=== PATIENT | female | born 1970 ===

== ENCOUNTER 2025-05-29 23:43 | Day surgery (SDC) | payer BC, SELFPAY ==
[2025-05-29 17:45] VITALS: BP 138/81
[2025-05-29 18:10] LABS: Hematocrit 41.9 % (37.0-47.0); Hemoglobin 13.4 g/dL (12.0-16.0); Mean Corp Hgb Conc. 32.0 g/dL (33.0-37.0); Mean Corpuscular Volume 89.7 fL (81.0-99.0); Nucleated Red Blood Cells % 0 %; Platelet Count 246 10^3/uL (130-400); Red Cell Dist. Width 12.9 % (11.5-14.5)
[2025-05-29 18:18] LABS: Urine Character Clear (Clear)
[2025-05-29 18:31] LABS: ALT (SGPT) 36 U/L (0-35); AST (SGOT) 23 U/L (14-36); Albumin 4.6 g/dl (3.5-5.0); Alkaline Phosphatase 56 U/L (38-126); Blood Urea Nitrogen 17 mg/dl (7-17); Calcium 10.0 mg/dl (8.4-10.2); Carbon Dioxide 28 mmol/L (22-30); Chloride 106 mmol/L (98-107); Glucose 108 mg/dl (70-99); Lipase 170 U/L (23-300); Potassium 4.0 mmol/L (3.5-5.1); Sodium 141 mmol/L (135-145); Total Protein 7.9 g/dl (6.3-8.2); eGFR > 60.00
[2025-05-29 19:20] LABS: Urine Urothelial Cell 0-2 /LPF (FEW)
[2025-05-29 22:24] VITALS: BMI 29.7
--- NOTE | 2025-05-29 22:37 | ED.GENMED ---
History of Present Illness
General
Chief Complaint: Abdominal Pain
Time Seen by Provider: 05/29/25 20:29
History of Present Illness
History of Present Illness:
55-year-old female presents emergency department for evaluation of right lower quadrant pain for the past 2 days associated with poor appetite. Pain worsens when she walks and when she has bumps in the car. No fevers or chills. Prior abdominal
surgery includes
Review of Systems
Review of Systems
Allergies reviewed?: Yes
All Other Systems: ROS reviewed and negative except as documented in HPI and ROS
Phy Exam
Physical Exam
Physical Exam:
GEN: Well appearing, NAD, WDWN
HEENT: Oral mucosa moist, no scleral icterus
Cardiac: Regular rate
Lung: No respiratory distress, no tachypnea
Abdomen: Soft, focal right lower quadrant tenderness, no rigidity or peritoneal signs
MSK: No gross deformity or injuries
Skin: Good color, no pallor or jaundice, no rashes
Neuro: AO x3, moves all extremities freely
Psych: Calm, cooperative
Course
Orders/Labs/Results
Orders:
Orders
05/29/25 17:53
Complete Blood Count/With Diff Urgent
Comprehensive Metabolic Panel Urgent
Lipase Urgent
Urinalysis Reflex To Culture Urgent
Date Specimen was Collected: 05/29/25
Time Specimen was Collected: 17:47
Urine Microscopic Reflex Cult Urgent
Urine Culture Urgent
STEFFANIE Source: U
Specimen Description:
Date Specimen was Collected: 05/29/25
Time Specimen was Collected: 17:47
05/29/25 20:49
CT Abd/pelvis Wo Iv Cont Urgent
Comment: iv infiltrated, Yves made aware stated does not need iv
Reason For Exam: RLQ pain
05/29/25 22:36
Lactated Ringers [Lr] 1,000 ml IV 150 mls/hr
Piperacillin/Tazo 3.375 Gram [Zosyn] 3.375 gram in 50 ml IV NOW
Abnormal Lab Results
05/29/25
17:53
MCHC 32.0 L g/dL
(33.0-37.0)
MPV 11.8 H fL
(7.4-10.4)
Glucose 108 H mg/dl
(70-99)
ALT 36 H U/L
(0-35)
Ur Occult Blood Reflex 3+ A
(Negative)
Urine RBC 7-10 A /HPF
(0-2)
Urine Bacteria (Reflex) Moderate A
(Negative)
05/29/25 17:53
05/29/25 17:53
Vital Signs
Initial and Last Documented VS:
Initial Vital Signs
Temp Pulse Resp BP Pulse Ox
98.1 F 71 16 138/81 98
05/29/25 17:45 05/29/25 17:45 05/29/25 17:45 05/29/25 17:45 05/29/25 17:45
Last Documented Vital Signs
Temp Pulse Resp BP Pulse Ox
98.1 F 71 16 138/81 98
05/29/25 17:45 05/29/25 17:45 05/29/25 17:45 05/29/25 17:45 05/29/25 22:39
MDM/Problems Addressed
MDM/Problems Addressed:
Imaging and exam consistent with acute appendicitis. The patient did experience an IV contrast infiltration during scan however despite IV contrast not being adequately present on scan appendix was still clearly visualized. She was given ice pack
and elevation of the left arm. Will be admitted to the surgical service for operative intervention
*Pulse Oximetry
SaO2: 98
Oxygen Mode of Delivery: Room air
Patient hypoxic: no
*Critical Care Note
Total Time (30-74mins, 75-104mins- exclusive of procedures): Not Applicable
ED Attending Note
-
Portions of this chart may have been created with voice recognition software.� Occasional wrong word or��sound alike� substitutions may have occurred due to the inherent limitations of voice recognition software.
Discharge Plan
Departure
Patient Disposition: Admit
Date of Disposition: 05/29/25
Time of Disposition: 22:38
Admit to: Med/Surg
Presentation/result/management discussed w/ accepting MD/DO: Hospitalist
Discharge Problem:
Acute appendicitis
Referrals:
Simone Stewart MD [Family Provider, Internal Medicine]
Interventions
Interventions:
*Risk Screen - Suicide Last Done: 05/29/25 21:07
*General Assessment Last Done: 05/29/25 21:07
*Neglect/Abuse Screening Last Done: 05/29/25 21:07
*ED- Fall Risk Assessment Last Done: 05/29/25 21:07
*ED COVID-19 Vaccine History Last Done: 05/29/25 21:07
HF-Usrchf-Ynrwaszpli Assessment Last Done: 05/29/25 21:06
Discharge Date and Time
Print Language: GREENLANDIC
[2025-05-29] MEDS: ZOSYN 50 IV (23:28)
[2025-05-30] VITALS (9 sets, daily range): BP systolic 98–127; BP diastolic 67–83
[2025-05-30] MEDS: LR 1000 IV (00:07)
[2025-05-30] MEDS: TYLENOL 650 MG PO ×2 (00:09→10:52)
--- NOTE | 2025-05-30 00:56 | HPS.HSE ---
Addendum entered and electronically signed by Jairo Valverde MD 05/30/25 07:38:
Patient seen and examined.
Patient is a 55 yo F with a PMH of tobacco use and s/p x 2 who presents with RLQ abdominal pain. Ms. Berrios states that her discomfort began on Thursday. She describes a generalized abdominal discomfort and bloating sensation.
Symptoms persisted and localized to the RLQ on Thursday night and persisted throughout Thursday prompting presentation to the ED yesterday. No fevers or chills. No nausea or vomiting. She reports some mild blood in her urine, but denies any
dysuria. No GI issues. She has no chronic GI issues. No prior colonoscopy. No family history of colon cancer or IBD.
Gen: NAD
Abd: soft, tender in RLQ, ND, non-peritoneal, prior Pfannenstiel incision well-healed
Labs and CT scan imaging were reviewed
Patient is a 55 yo F p/w acute appendicitis
The natural history and pathophysiology of appendicitis was reviewed. CT scan imaging as a relates to her appendix was reviewed. Options for management including medical management with antibiotics versus surgical management with appendectomy were
considered and discussed. The pros and cons of both approaches was discussed. Specifically, we discussed failure of medical management in future episodes of appendicitis versus surgical risks. Recommend appendectomy.
Plan for a laparoscopic appendectomy. The procedure itself, as well as the risks, benefits, and alternatives was discussed. Specifically, we discussed the risks of bleeding, infection, injury to surrounding structures, staple line leak, need for
open procedure. Typical postprocedural recovery was discussed. All questions answered. Consent signed.
-- Laparoscopic appendectomy
-- Antibiotics: Zosyn
-- NPO, IVF
-- Pain control: Tylenol and IV Morphine PRN
Original Note:
Family Physician
-
Family Physician: Simone Stewart MD
Chief Complaint
-
abd pain since thursday
History of Present Illness
55 yo female with no past medical hx besides x2 presents to Ed for c/o of abd pain since Thursday. Initially pain was diffuse and she thought she ate something bad. Over the course of the last few days she has been feeling increased abd
bloating. She was drinking herbal teas thinking it would help. Tonight the pain worsened and is more loacalized to RLQ. Pain is worse with movement. Currently 3./10 at rest. Denies fever but thinks she did have some chills. No N/V but poor appetite.
ED treatments:
Ct abd:There is mild enlargement of the proximal to mid appendix, with mild stranding of the fat surrounding the appendix. These findings are suggestive of appendicitis, although not considered definitive. Please correlate clinically. Tiny
calcification in the lower pole the left kidney, which is compatible with a 1 mm nephrolith. No evidence for ureteral calculus.
Slightly prominent lymph nodes in the central upper abdomen and left upper abdomen, although not enlarged by size criteria. This could represent mesenteric adenitis.
3 mm calcified gallstone in the dependent portion of the gallbladder. No findings to suggest acute cholecystitis. No evidence for biliary ductal dilation.
Of note, during intravenous contrast injection, contrast extravasated into the soft tissues of the left elbow and distal aspect of the left upper arm.
wbc normal, bmp unremarkable
Zosyn started
Medical History
Past Medical History
Past Medical History: Reports None
Past Surgical History: Reports (x2)
Social History
Tobacco: Non-smoker
Alcohol: Occasional
Drug: None
Personal:
Living: With Family
Family History
Family History: Not pertinent
Allergies / Home Medications
Allergies reflects when Allergies were last updated in [employer].
Home Medications with original date entered in [employer] [facility]
Allergy/Medication List:
no medications
Review of Systems
-
History Source: Patient
A 12 point ROS was completed and negative except as noted: Yes
Constitutional: Reports Chills
EENT: Reports No Symptoms
Respiratory: Reports No Symptoms
Cardiac: Reports No Symptoms
Abdomen/GI: Reports Abdominal Pain (initially diffuse now more RLQ), Anorexia and Other (increased abd bloating)
: Reports No Symptoms
Musculoskeletal: Reports No Symptoms
Skin: Reports No Symptoms
Neurological: Reports No Symptoms
Endocrine: Reports No Symptoms
Hematologic/Lymphatic: Reports No Symptoms
Psych: Reports No Symptoms
Physical Exam
Vital Signs
Vital Signs
Temp Pulse Resp BP Pulse Ox
98.1 F 71 16 138/81 98
05/29/25 17:45 05/29/25 17:45 05/29/25 17:45 05/29/25 17:45 05/29/25 22:39
Physical Exam
General: Well Developed, Well Nourished, No Apparent Distress, Comfortable and Pain (3/10 at rest)
HEENT: NormoCephalic, Anicteric, Moist mucous membranes, Atraumatic and Good Dentition
Respiratory: Clear and Non Labored Respirations
Cardiac: S1/S2 and Regular Rhythm
GI: Soft, Normal Bowel Sounds, Tender (RLQ) and Distended (soft mild distension ); No Non Tender or Non Distended
Rectal: Deferred by Provider
Genito-urinary: Deferred by me
Musculoskeletal: No Clubbing and No Cyanosis
Skin: Warm, Dry and IV/Catheter Site (edema present above iv site due to infiltration. No pain or redness)
Neuro: Awake, Alert, Oriented, AO x 3, No Motor Deficits and Nonfocal/grossly intact
Hematologic/Lymphatic: No Lymphadenopathy
Psych: Calm
Laboratory Results
-
Laboratory Results
Total Bilirubin 0.5 mg/dl (0.2-1.3) 05/29/25 17:53
AST 23 U/L (14-36) 05/29/25 17:53
ALT 36 U/L (0-35) H 05/29/25 17:53
Alkaline Phosphatase 56 U/L (38-126) 05/29/25 17:53
Lipase 170 U/L (23-300) 05/29/25 17:53
Data Reviewed
-
CT Scan: Discussed with Physician
Lab Data: Discussed with Physician
Impression/Plan
-
IMPRESSION:
acute appendicitis
PLAN:
Admit to service of DR Barron
med surg obs
#acute appendicitis
-NPO x meds after mid---> OR tomorrow sometime
-IVF for hydration
-cont zosyn started in ED
-CBC, BMP in am
-pain control: tylenol, toradol morphine prn
-zofran prn
OF note while in CT scan pt had an extravasation of contrast dye. R upper are above IV with edema. Would continue ice to decrease edema.Denies pain.
DVT proph: scd
Full code
[2025-05-30] MEDS: ZOSYN 50 IV ×2 (05:26→10:43)
[2025-05-30 06:15] LABS: Hematocrit 36.6 % (37.0-47.0); Hemoglobin 12.1 g/dL (12.0-16.0); Mean Corp Hgb Conc. 33.1 g/dL (33.0-37.0); Mean Corpuscular Volume 88.8 fL (81.0-99.0); Nucleated Red Blood Cells % 0 %; Platelet Count 194 10^3/uL (130-400); Red Cell Dist. Width 12.6 % (11.5-14.5)
[2025-05-30 06:54] LABS: ALT (SGPT) 28 U/L (0-35); AST (SGOT) 20 U/L (14-36); Albumin 3.7 g/dl (3.5-5.0); Alkaline Phosphatase 46 U/L (38-126); Blood Urea Nitrogen 14 mg/dl (7-17); Calcium 8.7 mg/dl (8.4-10.2); Carbon Dioxide 25 mmol/L (22-30); Chloride 109 mmol/L (98-107); Estimated Creatinine Clearance 109 ml/min; Glucose 91 mg/dl (70-99); Potassium 4.0 mmol/L (3.5-5.1); Sodium 138 mmol/L (135-145); Total Protein 6.3 g/dl (6.3-8.2); eGFR > 60.00
--- NOTE | 2025-05-30 07:38 | W.SUR.PREOP ---
Pre-Operative Surgical Note
-
I have examined this patient prior to the performance of the scheduled procedure.
The patient's condition is unchanged from the time of the current History and
Physical and the patient is able to undergo the scheduled procedure.
--- NOTE | 2025-05-30 12:43 | W.IMMPOSTOP ---
Addendum entered and electronically signed by Jairo Valverde MD 05/30/25 12:48:
Correction:
Post-op Diagnosis: Acute appendicitis, umbilical hernia
Procedure Performed: Laparoscopic appendectomy, primary umbilical hernia repair
Original Note:
Surgical Immed Post Op Note
-
Primary Surgeon: Abram
Assisting Surgeon: CARLOS Lutz
Pre-op Diagnosis: Acute appendicitis
Post-op Diagnosis: Acute appendicitis
Procedure Performed: Laparoscopic appendectomy
Anesthesia Type: General
Specimen / Cultures:
1. Appendix
Estimated Blood Loss: 3 cc
Complications: None
Operative Findings:
1. Acutely inflamed, nonperforated appendix, mild serous reactive fluid
2. Mesentery taken with LigaSure device, base with a srinivasan load stapler
== END 2025-05-30 14:42 | disposition home or self-care (01) ==
LOC: PACU 23:43
PROVIDERS: Emergency Medicine; Nurse Practitioner Family; ATTENDING PHYSICIAN Surgery; EMERGENCY PHYSICIAN Emergency Medicine; FAMILY PHYSICIAN Internal Medicine
DX: K35.80 Unspecified acute appendicitis (principal); K42.9 Umbilical hernia without obstruction or gangrene
CPT/HCPCS: 44970; 74176; 80053; 81003; 81015; 83690; 85025; 87086; 88304; G0378